=== PATIENT | male | born 1960 | race Caucasian/White ===

== ENCOUNTER 2021-02-13 22:05 | Emergency (ER) | payer MEDICAID ==
[~2021-02-13] VITALS: Ht 175.3 cm; Wt 63.6 kg
[2021-02-14 00:55] LABS: BASOPHILS % (AUTO) 0.4 % (0-1); EOSINOPHILS % (AUTO) 0.1 % (0-6); HEMATOCRIT 47.4 % (42.0-52.0); HEMOGLOBIN 16.2 g/dl (14.0-17.9); LYMPHOCYTES % (AUTO) 7.9 % (21-51); MEAN CORPUSCULAR HEMOGLOBIN 27.6 PG (27.0-31.0); MEAN CORPUSCULAR HGB CONC 34.2 g/dL (33.0-36.5); MEAN CORPUSCULAR VOLUME 80.7 FL (78-98); MEAN PLATELET VOLUME 8.5 FL (7.4-10.4); MONOCYTES # (AUTO) 0.9 X10'3 (0-0.9); MONOCYTES % (AUTO) 7.4 % (2-12); NEUTROPHILS # (AUTO) 10.7 X10'3 (1.8-7.7); NEUTROPHILS % (AUTO) 84.2 % (42-75); PLATELET COUNT 290 X10'3 (140-440); RED BLOOD COUNT 5.88 X10'6 (4.70-6.10); RED CELL DISTRIBUTION WIDTH 13.5 % (11.5-14.5); WHITE BLOOD COUNT 12.8 X10'3 (4.5-11.0)
[2021-02-14 01:00] LABS: ALBUMIN 4.2 G/DL (3.4-5.0); ANION GAP 12 (8-16); BLOOD UREA NITROGEN 24 MG/DL (7-18); BUN/CREATININE RATIO 23.8 (5.4-32.0); CHLORIDE 100 MMOL/L (99-107); CREATININE 1.01 MG/DL (0.60-1.10); GLUCOSE 367 MG/DL (70-104); POTASSIUM 4.4 MMOL/L (3.5-5.1); SODIUM 137 MMOL/L (135-145); TOTAL CARBON DIOXIDE 25.4 MMOL/L (24-32); eGFR 75 ML/MIN
[2021-02-14 01:04] LABS: PARTIAL THROMBOPLASTIN TIME 24 SECONDS (22-32)
[2021-02-14] MEDS ORDERED: ondansetron/PF 4mg/2ml inj IV ONE (02:00)
[2021-02-14] MEDS ORDERED: morphine 4 MG/ML inj SYRINge IV ONE (02:00)
[2021-02-14] MEDS ORDERED: propofol 10mg/ml 20ml vial IV ONE (02:55)
[2021-02-14] MEDS ORDERED: METR-159 PO (04:58)
[2021-02-14] MEDS ORDERED: BISA-78 PO (04:59)
[2021-02-14 05:02] VITALS: BP 128/82
== END 2021-02-14 05:09 | disposition home or self-care (01) ==
LOC: ER 22:05
DX: T18.5XXA Foreign body in anus and rectum, initial encounter (principal); Z79.899 Other long term (current) drug therapy; X58.XXXA Exposure to other specified factors, initial encounter; Y93.89 Activity, other specified; Y92.89 Other specified places as the place of occurrence of the external cause; Y99.8 Other external cause status
CPT/HCPCS: 36415; 72170; 80048; 85025; 85610; 85730; 94799; 96374; 96375; 99285; J2270; J2405; J2704; 99152; 99284

== ENCOUNTER 2021-06-01 07:28 | Inpatient (IN) | payer OTHER ==
[~2021-06-01] VITALS: Ht 177.8 cm; Wt 59.9 kg
[~2021-06-01 07:28] MED LIST: BISA-78 PO
[2021-06-01 08:10] VITALS: BP 139/99
[2021-06-01 10:43] LABS: BASOPHILS % (AUTO) 0.7 % (0-1); EOSINOPHILS # (AUTO) 0.1 X10'3 (0-0.9); EOSINOPHILS % (AUTO) 1.3 % (0-6); LYMPHOCYTES # (AUTO) 1.1 X10'3 (1.1-4.8); LYMPHOCYTES % (AUTO) 18.8 % (21-51); MEAN CORPUSCULAR HGB CONC 32.9 g/dL (33.0-36.5); MEAN PLATELET VOLUME 8.2 FL (7.4-10.4); MONOCYTES # (AUTO) 0.4 X10'3 (0-0.9); MONOCYTES % (AUTO) 6.9 % (2-12); NEUTROPHILS # (AUTO) 4.1 X10'3 (1.8-7.7); NEUTROPHILS % (AUTO) 72.3 % (42-75); PRE OP HEMOGLOBIN 13.1 g/dL (14.0-17.9); PRE OP PLATELET COUNT 260 X10'3 (140-440); RED BLOOD COUNT 5.06 X10'6 (4.70-6.10); RED CELL DISTRIBUTION WIDTH 14.2 % (11.5-14.5)
[2021-06-01 10:59] LABS: ALBUMIN 3.3 G/DL (3.4-5.0); ALKALINE PHOSPHATASE 92 IU/L (46-116); BLOOD UREA NITROGEN 19 MG/DL (7-18); BUN/CREATININE RATIO 32.8 (5.4-32.0); C-REACTIVE PROTEIN 0.79 MG/DL (0.0-0.5); CALCIUM 9.1 MG/DL (8.5-10.1); CHLORIDE 101 MMOL/L (99-107); CREATININE 0.58 MG/DL (0.60-1.10); PRE OP ALT 32 U/L (30-65); PRE OP ANION GAP 11 (8-16); PRE OP AST 15 U/L (10-37); PRE OP BILIRUB, TOTAL 0.3 MG/DL (0.0-1.0); PRE OP POTASSIUM 4.3 MMOL/L (3.4-5.1); PRE OP SODIUM 137 MMOL/L (135-145); TOTAL CARBON DIOXIDE 24.8 MMOL/L (24-32); TOTAL PROTEIN 6.5 G/DL (6.4-8.2); eGFR > 90 ML/MIN
[2021-06-01 11:00] LABS: PRE OP GLUCOSE 268 MG/DL (70-104)
[2021-06-01] MEDS ORDERED: ringers solution, lacted 1,000 ML IV SCH ×2 (11:04→16:50)
[2021-06-01] MEDS ORDERED: famotidine 20mg tablet PO ONE (11:04)
[2021-06-01] MEDS ORDERED: METF-438 PO (11:32)
[2021-06-01] MEDS ORDERED: CEPH-585 PO (11:32)
[2021-06-01] MEDS ORDERED: DICL75TA28 PO (11:32)
[2021-06-01] MEDS ORDERED: GABA300C PO (11:32)
--- NOTE | 2021-06-01 12:00 | NUR ---
NOTIFIED DR MARTINO OF OF 268. ORDER FOR REGULAR INSULIN 8MH SQ X1 AND REPEAT ACCU CHECK 30MIN AFTER GIVEN Addendum: 06/01/21 at 1338 by Ariana Velasquez RN Amended: Links added.
[2021-06-01] MEDS ORDERED: insulin regular, human 10 units/0.1 ml syringe SQ ONE (12:10)
[2021-06-01] MEDS ORDERED: ROPIVAcaine 0.5% (5mg/ml) 30ml vial ONE ×2 (13:36→15:50)
[2021-06-01] MEDS ORDERED: ketorolac trometh. 30mg/ml inj. ONE (13:36)
[2021-06-01] MEDS ORDERED: MIDAZolam 1 MG/ML 5ML VIAL ONE (15:44)
[2021-06-01] MEDS ORDERED: fentaNYL/PF 50MCG/1 ML 2ML syringe ONE (15:44)
[2021-06-01] MEDS ORDERED: LIDOcaine 2% (20mg/ml) 5ml vial ONE (16:16)
[2021-06-01] MEDS ORDERED: propofol inj 20 ML IV ONE (16:16)
[2021-06-01] MEDS ORDERED: ceFAZolin 1000mg inj ONE ×2 (16:43)
[2021-06-01] MEDS ORDERED: vancomycin 1,000mg inj ONE (16:44)
[2021-06-01] MEDS ORDERED: proCHLORperazine 10 MG/2 ml inj IV PRN (16:50)
[2021-06-01] MEDS ORDERED: morphine 2 MG/ML inj. syringe IV PRN (16:50)
[2021-06-01] MEDS ORDERED: meperidine/PF 25mg/ml syringe IV PRN ×3 (16:50)
[2021-06-01] MEDS ORDERED: morphine 4 MG/ML inj SYRINge IV PRN (16:50)
[2021-06-01] MEDS ORDERED: ondansetron/PF 4mg/2ml inj IV PRN ×2 (16:50→17:20)
[2021-06-01 17:19] VITALS: BP 138/87
--- NOTE | 2021-06-01 17:19 | NUR ---
Received from OR via MED SURG BED , accompanied by Anesthesiologist LUZ and report given by Anesthesiolgist. PATIENT WITH 20G PIV IN LEFT UE RUNNING LR AT 100. DENIES PAIN. RIGHT UE IN SLING WITH + RADIAL PULSE PRESENT. PATIENT WITH SCDS DONNED.+ RADIAL PULSE IN RIGHT UE AND IS IN A SLING AND ULNAR NERVE PROTECTED WITH PILLOWS. ARTHUR DRAIN IN PLACE WITH BLOODY DRAINAGE PRESENT IN BULB. Addendum: 06/01/21 at 1732 by Saud Zhang RN, RN Amended: Links added.
[2021-06-01] MEDS ORDERED: oxyCODONE IR 5mg (immed. release) tablet PO PRN ×2 (17:20)
[2021-06-01] MEDS ORDERED: HYDROmorphone inj. 0.5 MG/0.5 ML DISP.SYRIN IV PRN (17:20)
[2021-06-01] MEDS ORDERED: magnesium hydroxide 30ml (MOM) UD suspension PO PRN (17:20)
[2021-06-01] MEDS ORDERED: diphenhydrAMINE 25mg capsule PO PRN ×2 (17:20)
[2021-06-01] MEDS ORDERED: HYDROmorphone 1 mg/ml syringe IV PRN (17:20)
[2021-06-01] MEDS ORDERED: acetaminophen 325mg tablet PO PRN (17:20)
[2021-06-01] MEDS ORDERED: DICLOFENAC 75 MG PO PRN (17:20)
[2021-06-01] MEDS ORDERED: bisacodyl 10mg suppository rectal RC PRN (17:20)
[2021-06-01 17:30] VITALS: BP 132/83
[2021-06-01 17:40] VITALS: BP 139/84
--- NOTE | 2021-06-01 17:46 | NUR ---
102 BG IN RR Addendum: 06/01/21 at 1746 by Saud Zhang RN RN Amended: Links added.
[2021-06-01 17:50] VITALS: BP 137/84
--- NOTE | 2021-06-01 17:59 | NUR ---
TRANSFER: PATIENT HAS MET ALL CRITERIA FOR TRANSFER TO THE SURGICAL/SURYA/PCU/ORTHO/ICU FLOOR. VSS. DRESSINGS INTACT. BED LOW, CALL LIGHT PRESENT AND 2 RAILS UP. RN PRESENT TO ACCEPT CARE OF PATIENT AND REPORT HAS BEEN CALLED. ALL QUESTIONS ANSWERED TO ACCEPTING [facility].VSS. DENIES PAIN. NERVE BLOCK STILL INTACT AND APPROX. 20CC OF SEROSANGUENOUS FLUIDS IN BULB- SUCTION MAINTAINED AND DRESSING STILL CDI WITH + RADIAL PULSE PRESENT. Addendum: 06/01/21 at 1804 by Saud Goodwin - [facility] Amended: Links added.
[2021-06-01 18:00] VITALS: BP 125/69
--- NOTE | 2021-06-01 18:40 | NUR ---
Problems reprioritized. Patient report given, questions answered & plan of care reviewed with Ananya PETERSEN Traveler.
[2021-06-01] MEDS ORDERED: VANCOMYCIN 1GM/200ML IVPB 200 ML IV SCH (20:00)
[2021-06-01] MEDS: metFORMIN 500mg tablet PO SCH (20:58)
[2021-06-01] MEDS: acetaminophen 325mg tablet PO SCH (20:59)
[2021-06-01] MEDS: gabapentin 300mg capsule PO SCH (20:59)
[2021-06-01] MEDS ORDERED: sennosides 8.6mg tablet PO SCH (21:00)
[2021-06-01] MEDS: potassium cl 20mEq in 1/2 NS 1,000 ML IV SCH (23:45)
[2021-06-02] VITALS: BP 103/60
[2021-06-02] MEDS: ceFAZolin/D5W- 1GM premix 50 ML IV SCH ×2 (00:32→07:25)
[2021-06-02] MEDS: acetaminophen 325mg tablet PO SCH ×3 (01:16→08:39)
[2021-06-02] MEDS: potassium cl 20mEq in 1/2 NS 1,000 ML IV SCH ×2 (01:20→09:20)
--- NOTE | 2021-06-02 06:20 | NUR ---
Problems reprioritized. Patient report given, questions answered & plan of care reviewed with Shira..
--- NOTE | 2021-06-02 06:23 | NUR ---
Patient in room [facility]. I have received report from [place] and had the opportunity to ask questions and assume patient care.
--- NOTE | 2021-06-02 07:08 | NUR ---
Patient in room [facility] 349B. I have received report from [facility] TAPIA and had the opportunity to ask questions and assume patient care.
[2021-06-02] MEDS: gabapentin 300mg capsule PO SCH (07:26)
[2021-06-02] MEDS: metFORMIN 500mg tablet PO SCH (07:26)
[2021-06-02 12:00] VITALS: BP 137/80
--- NOTE | 2021-06-02 12:15 | NUR ---
PATIENT STABLE AND APPROPRIATE FOR DISCHARGE, IV TAKEN OUT, EDUCATION GIVEN, SUPPLIES TO EMPTY [facility] DRAIN, NEW MEDS E-SCRIPTED TO PREFERRED PHARMACY, SCRIPT FOR WEEKLY LABS AND ABX GIVEN TO PATIENT, ALL BELONGINGS SENT WITH PATIENT, PATIENT TAKEN TO LOBBY BY WHEELCHAIR WHERE FAMILY MEMBER WILL TAKE PATIENT HOME
--- NOTE | 2021-06-02 14:30 | NUR ---
Student documentation: I have reviewed and agree with all interventions, assessments documented by SN RIVERA.
[2021-06-03] MEDS ORDERED: acetaminophen 325mg tablet PO PRN (17:20)
== END 2021-06-02 12:16 | disposition home or self-care (01) | DRG 507 ==
LOC: PAS IN 07:48 → SUR 3N 19:00
PROVIDERS: ADMIT Orthopaedic Surgery; ATTEND Orthopaedic Surgery
PROC: 3E0T3BZ Introduction of Anesthetic Agent into Peripheral Nerves and Plexi, Percutaneous Approach (ICD-10-PCS; 2021-06-01)
PROC: 3E0T33Z Introduction of Anti-inflammatory into Peripheral Nerves and Plexi, Percutaneous Approach (ICD-10-PCS; 2021-06-01)
PROC: 02HV33Z Insertion of Infusion Device into Superior Vena Cava, Percutaneous Approach (ICD-10-PCS; 2021-06-01)
PROC: B548ZZA Ultrasonography of Superior Vena Cava, Guidance (ICD-10-PCS; 2021-06-01)
PROC: 0R9J0ZZ Drainage of Right Shoulder Joint, Open Approach (ICD-10-PCS; principal; 2021-06-01 15:45)
DX: M00.9 Pyogenic arthritis, unspecified (principal); M86.8X1 Other osteomyelitis, shoulder; M19.011 Primary osteoarthritis, right shoulder; M01.X11 Direct infection of right shoulder in infectious and parasitic diseases classified elsewhere; B95.4 Other streptococcus as the cause of diseases classified elsewhere; M25.511 Pain in right shoulder; E11.69 Type 2 diabetes mellitus with other specified complication; Z79.899 Other long term (current) drug therapy
CPT/HCPCS: 36569; Z7506; Z7508; 36415; 76942; 80053; 82948; 85025; 85651; 86140; 87040; 87070; 87075; 87077; 87186; 87635; 93005; A4565; A4618; A7000; G0378; J0690; J1815; J1885; J2250; J2704; J2795; J3010; J3370; J3480; J3490; J7120